=== PATIENT | male | born 1950 ===

== ENCOUNTER 2019-04-10 12:58 | Emergency (ER) | payer MEDICARE ==
--- NOTE | 2019-04-10 14:38 | Emergency Department Report ---
ED General Adult HPI - General Chief complaint: Recheck/Abnormal Lab/Rx Stated complaint: ABNORMAL EKG Source: EMS Mode of arrival: Stretcher Limitations: Altered Mental Status - History of Present Illness Initial comments: 68 -year-old male with a history of hypertension, CVA with aphasia, diabetes, CHF with an ejection fraction of 25% with prior history of cocaine abuse presen ts after being referred from [facility] with an abnormal EKG. EKG was reviewed by nurse practitioner today and patient was sent here to the emergency department for evaluation. Patient has a history of a aphasia and is unable to give a history. Severity scale (0 -10): 0 - Related Data Home Medications Medication Instructions Recorded Confirmed Last Taken AtorvaSTATin [Lipitor] 80 mg PO QHS 04/10/19 04/10/19 04/09/19 Cholecalciferol (Vitamin D3) 1,000 mg PO QDAY 04/10/19 04/10/19 04/10/19 Clopidogrel [Plavix] 75 mg PO QDAY 04/10/19 04/10/19 04/10/19 Furosemide [Lasix TAB] 20 mg PO BID 04/10/19 04/10/19 04/10/19 Ipratropium/Albuterol Sulfate 0.5 - 2.5 mg IH PRN 04/10/19 04/10/19 Unknown [DUONEB *Not for PRN Use*] carvediloL [Coreg] 6.25 mg PO BID 04/10/19 04/10/19 04/10/19 lisinopriL [Zestril TAB] 5 mg PO QDAY 04/10/19 04/10/19 04/10/19 Previous Rx's Medication Instructions Recorded Last Taken Type Aspirin [Aspirin BABY CHEW TAB] 81 mg PO QDAY #30 tab.chew 05/28/17 04/10/19 Rx Allergies Allergy/AdvReac Type Severity Reaction Status Date / Time No Known Allergies Allergy Unverified 05/22/17 15:47 ED Review of Systems ROS: Stated complaint: ABNORMAL EKG Other details as noted in HPI Comment: unable to obtain ROS secondary to patient's aphasia Constitutional: denies: chills, fever Eyes: denies: eye pain, eye discharge, vision change ENT: denies: ear pain, throat pain Respiratory: denies: cough, shortness of breath, wheezing Cardiovascular: denies: chest pain, palpitations Endocrine: no symptoms reported Gastrointestinal: denies: abdominal pain, nausea, diarrhea Genitourinary: denies: urgency, dysuria Musculoskeletal: denies: back pain, joint swelling, arthralgia Skin: denies: rash, lesions Neurological: denies: headache, weakness, paresthesias Psychiatric: denies: anxiety, depression Hematological/Lymphatic: denies: easy bleeding, easy bruising ED Past Medical Hx - Past Medical History Previous Medical History?: Yes Hx Hypertension: Yes Hx CVA: Yes (03/2018) Hx Congestive Heart Failure: Yes Hx Deep Vein Thrombosis: Yes (2017) Hx Asthma: Yes - Surgical History Past Surgical History?: No - Social History Smoking Status: Unknown if ever smoked - Medications Home Medications: Home Medications Medication Instructions Recorded Confirmed Last Taken Type Aspirin [Aspirin BABY CHEW TAB] 81 mg PO QDAY #30 tab.chew 05/28/17 04/10/19 04/10/19 Rx AtorvaSTATin [Lipitor] 80 mg PO QHS 04/10/19 04/10/19 04/09/19 History Cholecalciferol (Vitamin D3) 1,000 mg PO QDAY 04/10/19 04/10/19 04/10/19 History Clopidogrel [Plavix] 75 mg PO QDAY 04/10/19 04/10/19 04/10/19 History Furosemide [Lasix TAB] 20 mg PO BID 04/10/19 04/10/19 04/10/19 History Ipratropium/Albuterol Sulfate 0.5 - 2.5 mg IH PRN 04/10/19 04/10/19 Unknown History [DUONEB *Not for PRN Use*] carvediloL [Coreg] 6.25 mg PO BID 04/10/19 04/10/19 04/10/19 History lisinopriL [Zestril TAB] 5 mg PO QDAY 04/10/19 04/10/19 04/10/19 History ED Physical Exam - General Limitations: Altered Mental Status General appearance: in no apparent distress, other (awake aphasic stating yes and laughing ) - Head Head exam: Present: atraumatic, normocephalic - Eye Eye exam: Present: normal appearance - ENT ENT exam: Present: mucous membranes dry - Neck Neck exam: Present: normal inspection - Respiratory Respiratory exam: Present: normal lung sounds bilaterally. Absent: respiratory distress - Cardiovascular Cardiovascular Exam: Present: regular rate, normal rhythm. Absent: systolic murmur, diastolic murmur, rubs, gallop - GI/Abdominal GI/Abdominal exam: Present: soft, normal bowel sounds - Rectal Rectal exam: Present: deferred - Extremities Exam Extremities exam: Present: normal inspection - Back Exam Back exam: Present: normal inspection - Neurological Exam Neurological exam: Present: CN II-XII intact, other (strength 5/5 bilateral in upper and lower extremities; patient able to follow some commands and moves extremities) - Psychiatric Psychiatric exam: Present: normal affect, normal mood - Skin Skin exam: Present: warm, dry, intact, normal color. Absent: rash ED Course Vital Signs 04/10/19 04/10/19 04/10/19 13:33 13:35 13:37 Temperature 97.7 F Pulse Rate 77 Respiratory 22 22 Rate Blood Pressure Blood Pressure 128/88 [Right] O2 Sat by Pulse 99 100 Oximetry 04/10/19 04/10/19 04/10/19 14:31 15:01 15:16 Temperature Pulse Rate 77 85 78 Respiratory 16 24 19 Rate Blood Pressure 139/99 128/88 139/99 Blood Pressure [Right] O2 Sat by Pulse 99 96 Oximetry 04/10/19 04/10/19 04/10/19 15:31 15:45 16:01 Temperature Pulse Rate 76 79 78 Respiratory 18 22 15 Rate Blood Pressure 145/104 139/99 139/99 Blood Pressure [Right] O2 Sat by Pulse 95 100 93 Oximetry 04/10/19 16:31 Temperature Pulse Rate 78 Respiratory 10 L Rate Blood Pressure 137/98 Blood Pressure [Right] O2 Sat by Pulse 98 Oximetry ED Medical Decision Making - Lab Data Result diagrams: 04/10/19 15:40 04/10/19 15:40 - EKG Data EKG shows normal: sinus rhythm Rate: normal - EKG Data Interpretation: other (left anterior fascicular block; LVH; T wave inversion present in leads v4-v6; III and avF) - Medical Decision Making Patient had 2 sets of troponin which are negative. Patient no acute distress. Patient be discharged to follow up with PCP as well as [facility]. - Differential Diagnosis arrhythmia; STEMI; NSTEMI; Anemia; Electrolyte abnormality Critical care attestation.: If time is entered above; I have spent that time in minutes in the direct care of this critically ill patient, excluding procedure time. ED Disposition Clinical Impression: Coronary artery disease Disposition: DC-01 TO HOME OR SELFCARE Is pt being admited?: No Condition: Stable Instructions: Coronary Artery Disease (ED) Time of Disposition: 20:02 Print Language: ETHIOPIAN
--- NOTE | 2019-04-10 15:40 | XRay Report ---
CHEST 1 VIEW INDICATION: chest pain. COMPARISON: Chest x-ray 05/25/2017 FINDINGS: Support devices: None. Heart: Stable mild cardiomegaly. Lungs/Pleura: Mild interstitial edema. Additional findings: None. IMPRESSION: 1. Mild cardiomegaly with mild edema. Signer Name: Rashel Eastman MD Signed: 04/10/2019 3:35 PM Workstation Name: [id number]
[2019-04-10 15:52] LABS: Hematocrit 42.9 % (35.5-45.6); Hemoglobin 14.1 gm/dl (11.8-15.2); Mean Corpuscular HGB Conc 33 % (32-34); Mean Corpuscular Volume 99 fl (84-94); Platelet Count 214 K/mm3 (140-440); Red Blood Count 4.35 M/mm3 (3.65-5.03); Red Cell Distribution Width 16.3 % (13.2-15.2)
[2019-04-10 16:16] LABS: Alanine Aminotransferase 63 units/L (7-56); Albumin 3.2 g/dL (3.9-5); BUN/Creatinine Ratio 16; Blood Urea Nitrogen 18 mg/dL (9-20); Calcium 8.3 mg/dL (8.4-10.2); Hemolysis Index 16
[2019-04-11 01:37] VITALS: BP 128/88
== END 2019-04-11 01:35 | disposition home or self-care (01) ==
LOC: ED 12:58
DX: I25.10 Atherosclerotic heart disease of native coronary artery without angina pectoris (principal); I11.0 Hypertensive heart disease with heart failure; I50.9 Heart failure, unspecified; J45.909 Unspecified asthma, uncomplicated; F12.10 Cannabis abuse, uncomplicated; Z86.718 Personal history of other venous thrombosis and embolism; Z79.01 Long term (current) use of anticoagulants; Z79.899 Other long term (current) drug therapy
CPT/HCPCS: 36415; 71045; 80053; 82550; 84484; 85027; 93005; 93010